=== PATIENT | female | born 1955 | race Caucasian/White ===

== ENCOUNTER 2023-11-16 15:16 | Emergency (ER) | payer BC, OTHER ==
[~2023-11-16] VITALS: Ht 157.5 cm; Wt 51.7 kg
[2023-11-16 15:27] VITALS: BP_SYST 108; PULSE 73; RESP 22; TEMP 97.4; O2SAT 98
[2023-11-16] MEDS ORDERED: IBUP-1969 PO (16:36)
[2023-11-16] MEDS ORDERED: TRAM50TA2 PO (16:36)
[2023-11-16] MEDS: KETOROLAC TROMETHAMINE 60 MG/2 ML VIAL IM ONE (16:42)
[2023-11-16 16:59] VITALS: BP_SYST 108; PULSE 73; RESP 22; TEMP 97.4; O2SAT 98
== END 2023-11-16 16:59 | disposition home or self-care (01) ==
LOC: SED 15:16
DX: M54.6 Pain in thoracic spine (principal); Z79.899 Other long term (current) drug therapy
CPT/HCPCS: 99283; 71045; 93005; 96372; J1885